=== PATIENT | female | born 1995 | race American Indian/Alaskan Native ===

== ENCOUNTER 2017-12-13 14:56 | Outpatient (CLI) | payer MEDICAID ==
[2017-12-13] MEDS ORDERED: LACTATED RINGERS 500 ML IV ONE (15:05)
--- NOTE | 2017-12-13 17:47 | Ultrasound Report ---
FINAL REPORT EXAM: US OB LIMITED HISTORY: labor COMPARISON: None available. TECHNIQUE: Several real-time grayscale and color Doppler images were obtained. FINDINGS: Limited exam performed for evaluation of BRITTANI. BRITTANI within normal limits measuring 14.7 centimeters. position vertex. heart rate 149 beats per minute. Placenta location is not demonstrated. The cervix is not visualized. IMPRESSION: BRITTANI within normal limits measuring 14.7 centimeters.
== END 2017-12-13 16:37 | disposition home or self-care (01) ==
LOC: EDBD 14:56 → TRG 14:56
PROVIDERS: ATTEND Obstetrics & Gynecology
DX: O47.03 False labor before 37 completed weeks of gestation, third trimester (principal); Z3A.36 36 weeks gestation of pregnancy
CPT/HCPCS: 59025; 76815

== ENCOUNTER 2017-12-22 18:16 | Inpatient (IN) | payer MEDICAID ==
[2017-12-22] MEDS ORDERED: LACTATED RINGERS 1,000 ML IV ONE (22:16)
[2017-12-22] MEDS ORDERED: SUBLIMAZE IV PRN (22:17)
[2017-12-22] MEDS ORDERED: CERVIDIL VG ONE (22:22)
[2017-12-22 22:52] LABS: Hematocrit 32.3 % (30.3-42.9); Hemoglobin 10.1 gm/dl (10.1-14.3); Mean Corpuscular HGB Conc 31 % (30-34); Mean Corpuscular Volume 71 fl (79-97); Platelet Count 229 K/mm3 (140-440); Red Blood Count 4.54 M/mm3 (3.65-5.03); Red Cell Distribution Width 18.9 % (13.2-15.2)
[2017-12-22 22:56] LABS: Mean Corpuscular Hemoglobin 22 pg (28-32)
[2017-12-22] MEDS ORDERED: LACTATED RINGERS 1,000 ML IV SCH (23:00)
[2017-12-22] MEDS ORDERED: NORMOSOL-R PH 7.4 1,000 ML IV ONE ×2 (23:05→23:07)
[2017-12-23] MEDS ORDERED: NORMOSOL-R PH 7.4 1,000 ML IV ONE (09:07)
--- NOTE | 2017-12-23 09:16 | History and Physical Report ---
History of Present Illness Date of examination: 12/23/17 Date of admission: 12/22/17 18:16 Chief complaint: Induction of Labor History of present illness: 22yo G 1 P 0 at 38 weeks 0 day here for Induction of Labor secondary to oligohydramnios. Her care is co-managed with [facility] due to morbid obesity and late entry to care. She was seen yesterday at [facility] and was found to have a BRITTANI of 4.65 cm, no heart reactivity, and a BPP of 6/10. Her course was complicated by UTI and anemia. UTI ANGIE was negative and she has been on iron therapy. She denies any problems today. Her GBS was neg. Past History Past Medical History: hematologic disorders (iron deficiency anemia) Past Surgical History: no surgical history Family/Genetic History: none Social history: lives with family, full code - Obstetrical History Expected Date of Delivery: 01/06/18 Actual Gestation: 38 Week(s) 0 Day(s) : 1 Para: 0 Hx # Term Pregnancies: 0 Number of Pregnancies: 0 Spontaneous Abortions: 0 Induced : 0 Number of Living Children: 0 Medications and Allergies Allergies Allergy/AdvReac Type Severity Reaction Status Date / Time No Known Allergies Allergy Verified 12/13/17 15:10 Home Medications Medication Instructions Recorded Confirmed Last Taken Type Ferrous Sulfate [Iron] 325 mg PO BID 12/13/17 12/13/17 12/13/17 09:00 History Pnv No.95/Ferrous Fum/Folic AC 1 tab PO DAILY 12/13/17 12/13/17 12/13/17 09:00 History [ Vitamins Tablet] Active Meds: Active Medications Fentanyl (Sublimaze) 100 mcg IV ONCE PRN PRN Reason: Pain Lactated Ringer's (Lactated Ringers) 1,000 mls @ 125 mls/hr IV DIRECT MALKA Review of Systems All systems: negative - Vital Signs Vital signs: Vital Signs Pulse BP Pulse Ox 118 H 124/69 97 12/22/17 19:16 12/22/17 19:16 12/22/17 19:16 Temp Pulse Resp BP Pulse Ox 97.6 F 99 H 16 112/58 97 12/23/17 03:03 12/23/17 07:05 12/23/17 03:03 12/23/17 07:05 12/23/17 01:35 - Physical Exam Cardiovascular: Regular rate, Normal S1, Normal S2, No murmurs Lungs: Positive: Clear to auscultation, Normal air movement Abdomen: Positive: normal appearance, soft Genitourinary (Female): Positive: normal external genitalia, normal perenium Vulva: both: normal Vagina: Positive: normal moisture Uterus: Positive: normal size, normal contour Anus/Rectum: Positive: normal perianal skin Extremities: Positive: normal Deep Tendon Reflex Grade: Normal +2 - Obstetrical FHR: category 1 FHR comments: baseline 140, moderate variability, 15X15 accels, no decels Uterine Contraction Monitor Mode: External Cervical Dilatation: 0 (per RN) Cervical Effacement Percentage: 0 (per RN) station: -3 Uterine Contraction Pattern: Absent Results Result Diagrams: 12/22/17 22:39 Abnormal lab results 12/22/17 Range/Units 22:39 MCV 71 L (79-97) fl MCH 22 L (28-32) pg RDW 18.9 H (13.2-15.2) % All other labs normal. Assessment and Plan - Patient Problems (1) 38 weeks gestation of Current Visit: Yes Status: Acute (2) Oligohydramnios in frey in third trimester Current Visit: Yes Status: Acute Plan to address problem: Admit to L&D with routine labor orders Cervidil for labor induction Anticipate vaginal delivery (3) Obesity complicating in third trimester Current Visit: Yes Status: Acute
[2017-12-23] MEDS ORDERED: XYLOCAINE 2% INFILTRATI NR (09:40)
[2017-12-23] MEDS ORDERED: SUBLIMAZE IV PRN (10:00)
[2017-12-23] MEDS ORDERED: BRETHINE IVP PRN (10:00)
[2017-12-23] MEDS ORDERED: PITOCin/NS 20 UNIT/1000ML DRIP 20 UNITS/1,000 ML BAG IV SCH (10:00)
[2017-12-23] MEDS ORDERED: ZOFRAN IV PRN (10:00)
[2017-12-23] MEDS ORDERED: ePHEDrine SULFATE IV PRN (10:00)
[2017-12-23] MEDS ORDERED: BRETHINE SUB-Q PRN (10:00)
[2017-12-23] MEDS ORDERED: MINERAL OIL PO PRN (10:00)
[2017-12-23] MEDS ORDERED: STADOL IV PRN (10:00)
[2017-12-23] MEDS ORDERED: CYTOTEC VAGINAL ONE (14:07)
[2017-12-23] MEDS: CYTOTEC VG SCH (18:59)
[2017-12-24] MEDS: NORMOSOL-R PH 7.4 1,000 ML IV SCH ×3 (01:28→16:14)
[2017-12-24] MEDS: PITOCin/NS 30 UNIT/500ML 30 UNITS/500 ML BAG IV SCH ×3 (03:36→11:11)
[2017-12-24] MEDS: CYTOTEC VG SCH (05:15)
--- NOTE | 2017-12-24 06:51 | Progress Note ---
Assessment and Plan - Patient Problems (1) 38 weeks gestation of Current Visit: Yes Status: Acute (2) Oligohydramnios in frey in third trimester Current Visit: Yes Status: Acute Plan to address problem: Continue routine labor orders Continue oxytocin for labor induction Anticipate vaginal delivery (3) Encounter for induction of labor Current Visit: Yes Status: Acute Plan to address problem: Oxytocin infusing @ 8 mu/min Anticipate vaginal delivery (4) Obesity complicating in third trimester Current Visit: Yes Status: Acute Plan to address problem: Limited OBUS to confirm presentation Subjective - Subjective Date of service: 12/24/17 Principal diagnosis: 38 weeks 1 day gestation; Induction of labor secondary to Oligo Interval history: 22yo G 1 P 0 at 38 weeks 0 day here for Induction of Labor secondary to oligohydramnios. Her care is co-managed with [facility] due to morbid obesity and late entry to care. She was seen yesterday at [facility] and was found to have a BRITTANI of 4.65 cm, no heart reactivity, and a BPP of 6/10. Her course was complicated by UTI and anemia. UTI ANGIE was negative and she has been on iron therapy. She denies any problems today. Her GBS was neg. She received one dose of cervidil x12 hrs and two doses of Cytotec 25mcg to posterior vaginal vault for cervical ripening without any cervical changes. Due to regular contractions every 2-5 mins after second dose of Cytotec, the 3rd dose of Cytotec was held and Oxytocin started 4 hours later. Patient reports: other (Patient resting in bed in semi-mitchell's position with eyes closed and snoring.) Objective - Vital Signs Vital Signs: Vital Signs - 12hr 12/23/17 12/23/17 12/23/17 18:59 19:22 19:28 Temperature 97.3 F L Pulse Rate 105 H 88 Respiratory 20 Rate Blood Pressure 123/80 137/81 O2 Sat by Pulse 98 Oximetry 12/23/17 12/23/17 12/24/17 20:38 21:37 00:09 Temperature Pulse Rate 83 95 H 92 H Respiratory Rate Blood Pressure 143/67 130/85 140/73 O2 Sat by Pulse Oximetry 12/24/17 12/24/17 12/24/17 00:10 03:33 03:34 Temperature 97.1 F L Pulse Rate 85 87 Respiratory 20 Rate Blood Pressure 114/54 O2 Sat by Pulse 99 Oximetry 12/24/17 12/24/17 12/24/17 03:37 03:39 03:44 Temperature 97.5 F L Pulse Rate 88 86 Respiratory Rate Blood Pressure O2 Sat by Pulse 99 96 Oximetry 12/24/17 12/24/17 12/24/17 03:49 03:54 03:59 Temperature Pulse Rate 86 85 87 Respiratory Rate Blood Pressure O2 Sat by Pulse 98 96 96 Oximetry 12/24/17 12/24/17 12/24/17 04:04 04:09 04:14 Temperature Pulse Rate 92 H 84 87 Respiratory Rate Blood Pressure O2 Sat by Pulse 96 97 96 Oximetry 12/24/17 12/24/17 12/24/17 04:19 04:24 04:28 Temperature Pulse Rate 87 90 85 Respiratory Rate Blood Pressure O2 Sat by Pulse 96 96 98 Oximetry 12/24/17 12/24/17 12/24/17 04:39 05:40 06:12 Temperature Pulse Rate 82 72 69 Respiratory Rate Blood Pressure 120/58 99/48 O2 Sat by Pulse 100 Oximetry 12/24/17 12/24/17 12/24/17 06:17 06:22 06:27 Temperature Pulse Rate 69 72 74 Respiratory Rate Blood Pressure O2 Sat by Pulse 99 99 99 Oximetry 12/24/17 12/24/17 12/24/17 06:32 06:36 06:40 Temperature Pulse Rate 78 78 77 Respiratory Rate Blood Pressure 123/53 O2 Sat by Pulse 99 99 Oximetry 12/24/17 06:42 Temperature Pulse Rate 80 Respiratory Rate Blood Pressure O2 Sat by Pulse 99 Oximetry - Exam FHR: auscultation normal, category 1 FHR comments: baseline 130, moderate variability, 15x15 accels, no decels Uterine Contraction Monitor Mode: External Cervical Dilatation: 0.5 (per RN) Cervical Effacement Percentage: 40 (per RN) station: -3 (per RN) Uterine Contraction Frequency (min): 2-3 Uterine Contraction Pattern: Regular - Labs Labs: Abnormal Labs 12/22/17 22:39 MCV 71 L MCH 22 L RDW 18.9 H
--- NOTE | 2017-12-24 07:43 | Ultrasound Report ---
ULTRASOUND OB LIMITED History: Evaluate presentation Technique: Transabdominal ultrasound with Doppler interrogation. Gestation: Single Position: Cephalic Heart Rate: 132 BPM IMPRESSION: Cephalic presentation.
--- NOTE | 2017-12-24 09:19 | Progress Note ---
Assessment and Plan - Patient Problems (1) 38 weeks gestation of Current Visit: Yes Status: Acute (2) Oligohydramnios in frey in third trimester Current Visit: Yes Status: Acute Plan to address problem: Will stop pitocin for now. We will do cytotec in 2 hours to ripen the cervix more. That was discussed with the patient. (3) Obesity complicating in third trimester Current Visit: Yes Status: Acute Subjective - Subjective Date of service: 12/24/17 Principal diagnosis: 38 weeks 1 day gestation; Induction of labor secondary to Oligo Interval history: Patient was admitted for oligohydramnios 2 days ago. She was induced with cervidil and pitocin was started last night. This AM, traving is CAT 1 and the cervix is still 1 cm/50-60%/-2 and medium consistency. Patient reports: other (Patient resting in bed in semi-mitchell's position with eyes closed and snoring.) Objective - Vital Signs Vital Signs: Vital Signs - 12hr 12/23/17 12/24/17 12/24/17 21:37 00:09 00:10 Temperature 97.1 F L Pulse Rate 95 H 92 H Respiratory 20 Rate Blood Pressure 130/85 140/73 Blood Pressure [Left] O2 Sat by Pulse Oximetry 12/24/17 12/24/17 12/24/17 03:33 03:34 03:37 Temperature 97.5 F L Pulse Rate 85 87 Respiratory Rate Blood Pressure 114/54 Blood Pressure [Left] O2 Sat by Pulse 99 Oximetry 12/24/17 12/24/17 12/24/17 03:39 03:44 03:49 Temperature Pulse Rate 88 86 86 Respiratory Rate Blood Pressure Blood Pressure [Left] O2 Sat by Pulse 99 96 98 Oximetry 12/24/17 12/24/17 12/24/17 03:54 03:59 04:04 Temperature Pulse Rate 85 87 92 H Respiratory Rate Blood Pressure Blood Pressure [Left] O2 Sat by Pulse 96 96 96 Oximetry 12/24/17 12/24/17 12/24/17 04:09 04:14 04:19 Temperature Pulse Rate 84 87 87 Respiratory Rate Blood Pressure Blood Pressure [Left] O2 Sat by Pulse 97 96 96 Oximetry 12/24/17 12/24/17 12/24/17 04:24 04:28 04:39 Temperature Pulse Rate 90 85 82 Respiratory Rate Blood Pressure 120/58 Blood Pressure [Left] O2 Sat by Pulse 96 98 Oximetry 12/24/17 12/24/17 12/24/17 05:40 06:12 06:17 Temperature Pulse Rate 72 69 69 Respiratory Rate Blood Pressure 99/48 Blood Pressure [Left] O2 Sat by Pulse 100 99 Oximetry 12/24/17 12/24/17 12/24/17 06:22 06:27 06:32 Temperature Pulse Rate 72 74 78 Respiratory Rate Blood Pressure Blood Pressure [Left] O2 Sat by Pulse 99 99 99 Oximetry 12/24/17 12/24/17 12/24/17 06:36 06:40 06:42 Temperature Pulse Rate 78 77 80 Respiratory Rate Blood Pressure 123/53 Blood Pressure [Left] O2 Sat by Pulse 99 99 Oximetry 12/24/17 12/24/17 12/24/17 06:47 07:41 07:47 Temperature 97.2 F L Pulse Rate 80 83 83 Respiratory 18 Rate Blood Pressure 139/66 Blood Pressure 139/66 [Left] O2 Sat by Pulse 99 100 Oximetry 12/24/17 12/24/17 12/24/17 07:48 07:53 07:58 Temperature Pulse Rate 82 89 85 Respiratory Rate Blood Pressure Blood Pressure [Left] O2 Sat by Pulse 99 98 99 Oximetry 12/24/17 12/24/17 12/24/17 08:03 08:08 08:39 Temperature Pulse Rate 92 H 99 H 71 Respiratory Rate Blood Pressure 126/61 Blood Pressure [Left] O2 Sat by Pulse 98 98 Oximetry - Exam Cardiovascular: Normal S1, Normal S2 Lungs: Clear to auscultation Vulva: both: normal FHR: category 1 Uterine Contraction Monitor Mode: External Cervical Dilatation: 1 Cervical Effacement Percentage: 50 station: -2 Uterine Contraction Pattern: Irregular Uterine Contraction Intensity: Mild - Labs Labs: Abnormal Labs 12/22/17 22:39 MCV 71 L MCH 22 L RDW 18.9 H
[2017-12-24] MEDS ORDERED: ePHEDrine SULFATE IV PRN (16:13)
[2017-12-24] MEDS ORDERED: NARCAN 2 MG/2 ML IV PRN (16:13)
--- NOTE | 2017-12-24 16:13 | Anesthesia Consultation ---
Anesthesia Consult and Med Hx Date of service: 12/24/17 - Airway Anesthetic Teeth Evaluation: Good ROM Head & Neck: Adequate Mental/Hyoid Distance: Adequate Mallampati Class: Class III Intubation Access Assessment: Possibly Difficult - Pre-Operative Health Status ASA Pre-Surgery Classification: ASA3 Proposed Anesthetic Plan: Epidural, Spinal - Pulmonary Hx Asthma: No COPD: No Hx Pneumonia: No - Cardiovascular System Hx Hypertension: No - Central Nervous System Hx Seizures: No Hx Psychiatric Problems: No - Endocrine Hx Renal Disease: No Hx End Stage Renal Disease: No Hx Hypothyroidism: No Hx Hyperthyroidism: No - Hematic Hx Anemia: No Hx Sickle Cell Disease: No - Other Systems Hx Alcohol Use: No Hx Obesity: Yes (BMI 46.6)
[2017-12-24] MEDS ORDERED: XYLOCAINE CARDIAC IV ONE (17:21)
[2017-12-24] MEDS ORDERED: XYLOCAINE MPF 2% ONE ×4 (17:22→22:50)
[2017-12-24] MEDS ORDERED: fentaNYL-BUPIV 2 MCG/ML-0.125% 200 MCG/100 ML BAG EPIDURAL SCH ×2 (17:30→23:45)
--- NOTE | 2017-12-24 18:22 | Event Note ---
Date: 12/24/17 Called to see this who is day 2 induction at 38 wks for oligo, she desires at this time for failed induction. Spoke with the patient and her family, she wants to proceed with primary . Reviewed risks of surgery tissues, all her questions were answered will proceed to the OR once available.
[2017-12-24] MEDS ORDERED: REGLAN IV SCH (18:35)
[2017-12-24] MEDS ORDERED: BICITRA PO ONE (18:35)
[2017-12-24] MEDS ORDERED: PEPCID IV SCH (18:35)
[2017-12-24] MEDS ORDERED: ANCEF/STERILE WATER 2 GM/20 ML 2 GM/20 ML SYRINGE IV NR (19:00)
[2017-12-24] MEDS ORDERED: NORMOSOL-R PH 7.4 1,000 ML IV SCH (19:00)
[2017-12-24] MEDS ORDERED: WATER FOR IRRIG STERILE IR ONE (22:00)
[2017-12-24] MEDS ORDERED: NACL 0.9% IR ONE (22:00)
[2017-12-24] MEDS ORDERED: ANCEF/STERILE WATER 2 GM/20 ML IV ONE (22:00)
[2017-12-24] MEDS ORDERED: NEO SYNEPHRINE/NS Syringe(OR USE) IV ONE (22:18)
[2017-12-24] MEDS ORDERED: ASTRAMORPH PF 10MG/10ML ONE (22:48)
--- NOTE | 2017-12-24 23:08 | Operative Report ---
Operative Report Operative Report: DATE: 12/24/2017 PREOPERATIVE DIAGNOSIS: 22-year-old at 38 weeks, oligohydramnios, arrest of descent, arrest of dilation, obesity POSTOP DIAGNOSIS: As above plus retroperitoneal mass of unknown etiology palpated NAME OF PROCEDURE: Primary low transverse section SURGEON: DUKE LOVELACE MD TOOL AND DIE MANAGER: [] ANESTHESIA: Epidural EBL: 500 mL PATHOLOGY SPECIMEN: None URINE OUTPUT: 100 mL FINDINGS: Male in cephalic presentation, OP position, time of 2217 , weight is 5 lbs. 11 oz. or 2591 g, Apgars 8 and 9 normal uterus tubes and ovaries bilaterally, firm well-circumscribed 8 x 3 cm retroperitoneal mass palpated the lower abdomen, mobile sure etiology, does not feel like a fecal ball. Discussed above with the patient, will consider CT imaging in the a.m. tomorrow. DESCRIPTION OF PROCEDURE: After informed consent, patient was taken to the operating room where she was prepped and draped in a sterile fashion. Pfannestial incision was performed 2 cm above the pubic symphysis. This was then carried down to the underlying rectus fascia which was scored in the midline. The fascial incision was extended laterally with the use of Garcia scissors, anterior leaf was then grasped with Alonso's elevated dissected sharply and bluntly off the underlying rectus. In a similar fashion the inferior leaf was grasped elevated dissected sharply and bluntly off the underlying rectus. The rectus was in the midline and the peritoneal cavity was entered without difficulty. After good visualization of the bladder the peritoneal layer was extended up and down; bladder blade was placed in the patient's pelvic cavity, bladder flap was created without difficulty. A hysterotomy incision was then performed with clear amniotic fluid noted. Infant in cephalic presentation was delivered without difficulty in the usual manner; cord was clamped cut and infant was handed over to waiting NICU staff. The placenta was then delivered intact, the uterus was then exteriorized cleared of all clots and debris. Her hysterotomy incision was then closed in a running locked fashion with 0 Vicryl on a CTX; using the same suture were able to imbricate the initial layer. The uterus was then returned to the patient's pelvic cavity; the peritoneal edges were grasped with hemostats and Nilda's; irrigation was used to clear the gutters of all clots and debris. Tisseel hemostatic agent was applied copiously over the hysterotomy incision. The bladder flap was then closed in a running fashion with 3-0 Vicryl. The peritoneal layer was closed in a running fashion with 3-0 Vicryl; the rectus was reapproximated with a single [id number] stitch. The fascia was then closed in a running fashion with 0 Vicryl; the subcutaneous layer was reapproximated with a single [id number] stitch. The skin was then closed in a subcuticular manner with 4-0 Monocryl. She tolerated the procedure well lap and instrument counts were correct 2, she did receive 2 grams of Ancef prior to the procedure. She is transferred to PACU in stable condition.
[2017-12-24] MEDS ORDERED: TORADOL IV PRN (23:09)
[2017-12-24] MEDS ORDERED: LANSINOH TP PRN (23:09)
[2017-12-24] MEDS ORDERED: NARCAN 0.4 MG/1 ML IV PRN ×2 (23:09→23:19)
[2017-12-24] MEDS ORDERED: TYLENOL PO PRN (23:09)
[2017-12-24] MEDS ORDERED: ANUCORT-HC PR PRN (23:09)
[2017-12-24] MEDS ORDERED: TUCKS PAD TP PRN (23:09)
[2017-12-24] MEDS ORDERED: MYLICON PO PRN (23:09)
[2017-12-24] MEDS ORDERED: SENOKOT PO PRN (23:09)
--- NOTE | 2017-12-24 23:15 | Event Note ---
Date: 12/24/17 Firm and well circumscribed mobile 8 x 3 cm retroperitoneal mass palpated during . Do not believe this is a fecal mass. Plan is to obtain CT imaging tomorrow a.m., informed patient about above plans.
[2017-12-24] MEDS ORDERED: PHENERGAN PR PRN (23:19)
[2017-12-24] MEDS ORDERED: ZOFRAN IV PRN (23:19)
[2017-12-24] MEDS ORDERED: PHENERGAN PO PRN (23:19)
[2017-12-24] MEDS: DILAUDID IV PRN ×2 (23:33→23:43)
[2017-12-24] MEDS ORDERED: PITOCin/NS 20 UNIT/1000ML DRIP 20 UNITS/1,000 ML BAG IV SCH (23:45)
[2017-12-24] MEDS ORDERED: D5LR 1,000 ML IV SCH (23:45)
[2017-12-24] MEDS ORDERED: SODIUM CHLORIDE FLUSH SYRINGE 10 ML IV PRN ×2 (23:45)
[2017-12-25] MEDS ORDERED: ANCEF/NS 1 GM/50 ML 1 GM/50 ML BAG IV SCH (01:00)
[2017-12-25] MEDS: ceFAZolin 1 GM in NACL 0.9% 20 ML IV SCH ×2 (04:11→12:00)
[2017-12-25] MEDS: PERCOCET 5/325 PO PRN ×3 (09:25→19:28)
--- NOTE | 2017-12-25 09:43 | Cat Scan Report ---
CT ABDOMEN PELVIS WITHOUT CONTRAST: HISTORY: Retroperitoneal mass palpated during . COMPARISON: none. TECHNIQUE: Helical CT in 1.25mm intervals without IV contrast. Sagittal and coronal reconstructions. FINDINGS: Lung bases: Minor subpleural atelectatic changes. Trace left pleural effusion. Normal heart size. Liver: Normal. Biliary system: There are numerous cholesterol gallstones within the gallbladder. No biliary dilatation or inflammation. Pancreas: Normal. Spleen: Normal. Kidneys/ureters/bladder: The right kidney is normal size and position. The left kidney is ectopic residing in the superior left pelvis. This presumably represents the retroperitoneal mass palpated during . No focal renal lesion or hydronephrosis. The bladder is empty and poorly evaluated. Adrenal glands: Normal. Aorta: Normal. Intestines: Unremarkable given no oral contrast was administered. Appendix: Not confidently identified. Pelvic viscera: Post uterus. changes. No acute abnormality. Ascites: None. Adenopathy: None. Musculoskeletal: Normal. IMPRESSION: No suspicious retroperitoneal mass. 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 This presumably represents the retroperitoneal mass palpated during . Cholelithiasis.
--- NOTE | 2017-12-25 10:12 | Progress Note ---
Assessment and Plan A: Postop day 1, Stable with support CT scan of pelvic mass done P: Routine postop care Continue support PRN to follow CT results Subjective - Subjective Date of service: 12/25/17 Principal diagnosis: 38 weeks 1 day gestation; Induction of labor secondary to Oligo Patient reports: pain well controlled, flatus, appetite poor [place]: doing well, nursing well (with support) Objective - Vital Signs Latest vital signs: Vital Signs Temp Pulse Resp BP BP Pulse Ox 12/25/17 08:41 99.7 F H 100 H 20 134/79 97 12/25/17 04:00 98.7 F 80 18 107/74 12/25/17 01:00 98.6 F 68 16 123/82 12/25/17 00:25 107 H 19 141/65 98 12/25/17 00:21 106 H 21 141/65 99 12/25/17 00:15 106 H 19 141/65 98 12/25/17 00:11 105 H 25 H 134/73 98 12/25/17 00:05 100.9 F H 111 H 13 134/73 98 12/25/17 00:00 103 H 21 134/73 98 12/24/17 23:55 105 H 26 H 139/72 98 12/24/17 23:51 101 H 15 139/72 98 12/24/17 23:45 103 H 13 139/72 98 12/24/17 23:41 105 H 11 L 115/75 99 12/24/17 23:35 107 H 29 H 115/75 100 12/24/17 23:30 109 H 16 115/75 100 12/24/17 23:25 116 H 18 115/52 100 12/24/17 23:21 108 H 23 115/52 100 12/24/17 23:15 120 H 14 127/111 100 12/24/17 23:12 100.7 F H 100 12/24/17 19:25 89 104/52 12/24/17 19:24 100 H 100 12/24/17 19:23 97 H 94/44 12/24/17 19:21 94 H 98/53 12/24/17 19:19 75 102/51 99 12/24/17 19:17 94 H 104/53 12/24/17 19:15 84 103/54 12/24/17 19:14 99 03/15/18 19:13 97 H 100/55 56 L 03/15/18 19:11 91 H 97/53 03/15/18 19:09 90 101/56 03/15/18 19:08 87 100 03/15/18 19:07 92 H 75/47 03/15/18 19:05 90 80/41 03/15/18 19:03 80 106/52 99 03/15/18 19:01 88 102/55 03/15/18 18:59 79 102/53 03/15/18 18:58 97 H 99 03/15/18 18:57 113 H 100/56 03/15/18 18:55 81 102/52 03/15/18 18:53 85 106/51 100 03/15/18 18:51 96 H 101/55 03/15/18 18:49 77 106/53 03/15/18 18:48 94 H 99 03/15/18 18:47 93 H 101/55 03/15/18 18:45 89 107/56 03/15/18 18:43 86 107/53 99 03/15/18 18:41 86 110/53 03/15/18 18:39 82 108/52 03/15/18 18:38 98 H 100 03/15/18 18:37 97 H 108/56 03/15/18 18:35 83 106/54 03/15/18 18:33 88 101/55 99 03/15/18 18:31 91 H 110/58 03/15/18 18:29 80 108/53 03/15/18 18:28 102 H 100 03/15/18 18:27 90 106/53 03/15/18 18:25 98 H 106/56 03/15/18 18:23 82 107/51 99 03/15/18 18:21 82 105/51 03/15/18 18:19 86 99/59 03/15/18 18:18 98 H 100 03/15/18 18:17 93 H 100/54 03/15/18 18:15 79 111/57 03/15/18 18:13 93 H 115/55 99 03/15/18 18:11 98 H 110/59 03/15/18 18:09 80 110/53 03/15/18 18:08 98 H 99 03/15/18 18:07 84 109/58 03/15/18 18:05 104 H 110/58 03/15/18 18:03 93 H 109/57 99 03/15/18 18:01 93 H 104/53 03/15/18 17:59 92 H 119/57 03/15/18 17:58 86 99 03/15/18 17:57 90 118/56 03/15/18 17:55 103 H 97/54 03/15/18 17:53 100 H 95/52 99 03/15/18 17:51 86 94/53 03/15/18 17:49 93 H 90/49 03/15/18 17:48 100 H 99 03/15/18 17:47 90 98/52 03/15/18 17:45 97 H 94/52 03/15/18 17:43 90 97/51 99 03/15/18 17:41 77 106/52 03/15/18 17:39 90 102/52 03/15/18 17:38 95 H 99 03/15/18 17:37 90 109/55 03/15/18 17:35 82 109/55 03/15/18 17:33 86 113/53 99 03/15/18 17:31 75 116/56 03/15/18 17:28 82 120/59 99 03/15/18 17:23 76 99 03/15/18 17:18 79 100 03/15/18 17:14 75 124/56 03/15/18 17:13 80 99 03/15/18 17:08 85 99 03/15/18 17:03 75 100 03/15/18 16:58 78 100 03/15/18 16:53 74 99 03/15/18 16:48 71 99 03/15/18 16:44 71 118/55 03/15/18 16:43 73 99 03/15/18 16:38 74 99 03/15/18 16:33 75 99 03/15/18 16:28 78 99 03/15/18 16:23 79 98 03/15/18 16:18 75 98 03/15/18 16:13 74 120/56 99 03/15/18 16:10 84 138/63 03/15/18 16:06 74 117/57 100 03/15/18 16:05 74 118/59 03/15/18 16:01 81 99 03/15/18 15:56 83 99 03/15/18 15:51 91 H 98 03/15/18 15:46 94 H 97 03/15/18 15:41 85 98 03/15/18 15:36 88 97 03/15/18 15:31 78 97 03/15/18 15:26 94 H 99 03/15/18 15:22 22 03/15/18 15:21 91 H 100 03/15/18 14:55 71 99 03/15/18 14:39 89 131/95 03/15/18 13:53 94 H 99 03/15/18 13:48 87 99 03/15/18 13:43 89 100 03/15/18 13:26 99 H 98 03/15/18 13:21 96 H 99 03/15/18 13:16 76 99 03/15/18 13:11 88 100 03/15/18 13:06 76 99 03/15/18 13:01 95 H 99 03/15/18 12:56 92 H 96 03/15/18 12:51 91 H 97 03/15/18 12:46 91 H 98 03/15/18 12:41 91 H 98 03/15/18 12:39 91 H 119/71 03/15/18 12:36 91 H 98 03/15/18 12:31 93 H 98 03/15/18 12:26 96 H 98 03/15/18 12:21 98 H 98 03/15/18 12:16 96 H 98 03/15/18 12:11 96 H 99 03/15/18 12:06 99 H 99 03/15/18 12:01 49 L 80 L 03/15/18 11:56 96 H 98 03/15/18 11:51 94 H 98 03/15/18 11:46 96 H 98 03/15/18 11:41 96 H 98 03/15/18 11:39 95 H 134/66 03/15/18 11:36 98 H 99 03/15/18 11:31 94 H 98 03/15/18 11:26 94 H 98 03/15/18 11:21 96 H 97 03/15/18 11:17 92 H 142/70 03/15/18 11:16 97 H 98 Intake and Output 03/15/18 03/16/18 03/16/18 23:59 07:59 15:59 Intake Total 1127.083 Output Total 100 1500 400 Balance 1027.083 -1500 -400 Intake: IV 1127.083 Normosol-R pH 7.4 1,000 127.083 ml @ 125 mls/hr IV DIRECT MALKA Rx#:[id number] Output: Urine 100 1500 400 Indwelling Catheter 1400 400 Uretheral (Alvares) 100 Other: Total, Output Amount 800 400 Estimated Blood Loss 500 - Exam Breasts: Present: deferred Cardiovascular: Present: Regular rate Lungs: Present: Clear to auscultation Abdomen: Present: normal appearance, soft, normal bowel sounds Vulva: both: normal Uterus: Present: normal, firm, fundal height at umbilicus Extremities: Present: normal Deep Tendon Reflex Grade: Normal +2 Incision: Present: normal, dressed
--- NOTE | 2017-12-25 11:01 | Event Note ---
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 Discussed above findings with the patient and provided her with the report. Explained this is benign but she will need to discuss any future abdominal surgeries especially hysterectomies with her surgeon in view of the ectopic kidney and likely aberrant location of her urinary system.
[2017-12-25 12:10] LABS: Hematocrit 31.6 % (30.3-42.9); Hemoglobin 9.7 gm/dl (10.1-14.3)
[2017-12-25] MEDS: MOTRIN PO PRN (13:40)
[2017-12-26] MEDS: PERCOCET 5/325 PO PRN ×4 (03:09→22:06)
[2017-12-26] MEDS: MOTRIN PO PRN ×4 (03:10→22:05)
[2017-12-26] MEDS: PRENATAL VITAMIN PO SCH (09:42)
[2017-12-26] MEDS: FEOSOL PO SCH (09:43)
--- NOTE | 2017-12-26 11:35 | Progress Note ---
Assessment and Plan A: POD #2 pelvic mass Asymptomatic Anemia P: Follow Routine PostOp Orders D/C home today per patient request RTO in One Week Subjective - Subjective Date of service: 12/26/17 Principal diagnosis: 38 weeks 1 day gestation; Induction of labor secondary to [place] Patient reports: appetite normal, voiding normally, pain well controlled, flatus , bowel movement, ambulating normally : doing well, bottle feeding Objective - Vital Signs Latest vital signs: Vital Signs Temp Pulse Resp BP BP Pulse Ox 12/26/17 08:57 98.0 F 85 18 131/67 98 12/26/17 04:10 18 12/26/17 04:09 18 12/26/17 03:10 18 12/26/17 03:09 16 12/26/17 00:00 98.2 F 76 18 126/73 12/25/17 20:28 18 12/25/17 19:28 16 12/25/17 16:41 98.1 F 84 20 106/56 100 12/25/17 13:41 20 12/25/17 13:40 20 12/25/17 12:34 98.3 F 98 H 20 119/64 99 Intake and Output 12/25/17 12/26/17 12/26/17 22:59 06:59 14:59 Intake Total 240 240 Balance 240 240 Intake: Oral 240 240 Other: Total, Intake Amount 240 240 # Voids Indwelling Catheter 1 1 - Exam Breasts: Present: normal Cardiovascular: Present: Regular rate Lungs: Present: Clear to auscultation, Normal air movement Abdomen: Present: normal appearance, soft, normal bowel sounds Uterus: Present: normal, firm, fundal height below umbilicus Extremities: Present: normal Incision: Present: normal, dry, intact - Labs Labs: Abnormal lab results 12/25/17 Range/Units 11:27 Hgb 9.7 L (10.1-14.3) gm/dl
--- NOTE | 2017-12-26 11:36 | Discharge Summary ---
Providers - Providers Date of Admission: 12/22/17 18:16 Date of discharge: 12/26/17 Attending physician: CHEYENNE TAN MD Primary care physician: CHEYENNE TAN MD Hospitalization Reason for admission: induction of labor Delivery: Procedure: primary low transverse Episiotomy: none Laceration: none Incision: normal, dry, intact Other procedures: none complications: other (pelvic mass) Discharge diagnosis: IUP at term delivered [place] baby: male Condition at discharge: Good Disposition: [id number] TO HOME OR SELFCARE Plan - Discharge Medications Prescriptions: Ibuprofen [Motrin 600 MG tab] 600 mg PO Q8H PRN #30 tablet PRN Reason: Pain Multivitamin with Iron [Multivitamins with Iron] 1 each PO DAILY #30 tablet oxyCODONE /ACETAMINOPHEN [Percocet 5/325] 1 tab PO Q6HR PRN #30 tablet PRN Reason: Pain - Provider Discharge Summary Activity: routine, no sex for 6 weeks, no heavy lifting 4 weeks, no strenuous exercise Diet: routine Instructions: routine Additional instructions: [] Smoking cessation referral if applicable(refer to patient education folder for contact #) [] Refer to [facility] Booklet Call your doctor immediately for: * Fever > 100.5 * Heavy vaginal bleeding ( >1 pad per hour) * Severe persistent headache * Shortness of breath * Reddened, hot, painful area to leg or breast * Drainage or odor from incision. * Keep incision clean and dry at all times and follow doctor's instructions regarding bathing/showering - Follow up plan Follow up: CHEYENNE TAN MD [Primary Care Provider] - 7 Days
[2017-12-26] MEDS: ceFAZolin 1 GM in NACL 0.9% 20 ML IV SCH (17:46)
[2017-12-27] MEDS: MOTRIN PO PRN ×2 (03:57→09:39)
[2017-12-27] MEDS: PERCOCET 5/325 PO PRN ×2 (03:57→09:39)
[2017-12-27] MEDS: PRENATAL VITAMIN PO SCH (09:38)
[2017-12-27] MEDS: FEOSOL PO SCH (09:39)
[2017-12-27 09:46] VITALS: BP 125/60
== END 2017-12-27 16:05 | disposition home or self-care (01) | DRG 765 ==
LOC: LD 18:16 → OB 12-25 01:54
PROVIDERS: ADMIT Obstetrics & Gynecology; ATTEND Obstetrics & Gynecology
PROC: 10D00Z1 Extraction of Products of Conception, Low, Open Approach (ICD-10-PCS; principal; 2017-12-24)
DX: O32.4XX0 Maternal care for high head at term, not applicable or unspecified (principal); O41.03X0 Oligohydramnios, third trimester, not applicable or unspecified; Z68.42 Body mass index [BMI] 45.0-49.9, adult; Z3A.38 38 weeks gestation of pregnancy; Z37.0 Single live birth; O99.214 Obesity complicating childbirth; E66.01 Morbid (severe) obesity due to excess calories; O99.03 Anemia complicating the puerperium; D64.9 Anemia, unspecified
CPT/HCPCS: 36415; 74176; 76815; 85014; 85018; 85027; 86850; 86900; 86901; 99211; C9250; G0463; J0595; J0690; J1170; J1885; J2001; J2274; J2370; J2405; J2590; J2765